=== PATIENT | male | born 1955 | race Caucasian/White ===

== ENCOUNTER → 2020-06-19 00:18 | Outpatient (CLI) | payer MEDICARE, SELFPAY ==
[2020-06-19 20:44] LABS: SARS-CoV-2 RNA PCR Negative
== END ==
PROVIDERS: Visit Provider Internal Medicine Gastroenterology
DX: Z01.812 Encounter for preprocedural laboratory examination (principal); Z20.822 Contact with and (suspected) exposure to COVID-19
CPT/HCPCS: C9803; U0003; U0005

== ENCOUNTER 2020-06-22 00:55 | Day surgery (SDC) | payer MEDICARE, SELFPAY ==
[2020-06-11 14:04] VITALS: BMI 29.9
[2020-06-22 08:40] VITALS: BP 147/93; PULSE 83; RESP 18; TEMP 36.7; O2SAT 96
[2020-06-22] MEDS: LACTATED RINGERS 1,000 ML 150 ML IV CONT (08:54)
[2020-06-22 09:00] LABS: Glucose Point of Care 153 (65-105)
--- NOTE | 2020-06-22 09:20 | WPDANESEPPF ---
Anes - Initial Pre Proc Eval Procedure: Operation Date: 06/22/20 09:30 Proposed Procedures p Screening Colonoscopy - Edgardo Luther MD Date/Time: 06/22/20 09:20 Surgeon: Edgardo Luther MD Pre Op Diagnosis: hx of colon polyps Patient Data Age: 64 Gender: M Height: 6 ft Weight: 113 kg Last Vital Signs Temp 98.0 F 06/22/20 08:40 Pulse 83 06/22/20 08:40 Resp 18 06/22/20 08:40 BP 147/93 H 06/22/20 08:40 Pulse Ox 96 06/22/20 08:40 Allergies Allergy/AdvReac Type Severity Reaction Status Date / Time No Known Allergies Allergy Mild Verified 06/22/20 08:38 Home Medications Medication Instructions Recorded Confirmed Type amlodipine 2.5 mg PO DAILY 06/11/20 06/11/20 History aspirin 81 mg PO DAILY 06/11/20 06/11/20 History atorvastatin 20 mg PO DAILY 06/11/20 06/11/20 History cholecalciferol (vitamin D3) 125 mcg PO DAILY 06/11/20 06/11/20 History [Vitamin D3] losartan 50 mg PO DAILY 06/11/20 06/11/20 History metformin 1,000 mg PO BID 06/11/20 06/11/20 History Laboratory Tests 06/22/20 08:56 POC Capillary Glucose 153 mg/dl H mg/dl (65-105) Patient hx anesthesia problems: none Family hx anesthesia problems: none [facility] Past Medical History Medical History (Updated 06/22/20 @ 09:13 by iJan Francis MD) Diabetes 1.5, managed as type 2 Hyperlipidemia Hypertension SHERLEY (obstructive sleep apnea) Social History Social History Years smoked: 20 Alcohol intake: unknown Substance use: never Substance use type: does not use Living arrangements: with friend(s) Anes - Eval Final PreProcedure Day of Procedure 06/22/20 09:20 Patient weight: obese Heart: regular rate and rhythm Lungs: clear to auscultation Airway: Mallampati scale class II Neurological: alert and oriented Last oral intake: >/= 8 hours ASA classification: III Emergent: no Anesthetic plan: proceed Anesthesia type and monitoring: general GIVS and standard monitoring Informed Consent: The patient's anesthetic plan and its attendant risks and benefits were discussed with the patient/family/POA. Questions were solicited and answers provided to the satisfaction of the patient/family/POA.
--- NOTE | 2020-06-22 09:39 | PM.HPGS ---
History of Present Illness History of Present Illness Consent: Risks, benefits, and alternatives have been discussed and questions answered. Patient agrees to proceed with procedure. Chief complaint: hx of colon polyps Narrative: Michele Marcos is a 64 year old male with last colonoscopy ~ 7 years ago, had polyps Review of Systems Constitutional: Constitutional: Denies headache(s) and Denies weakness Eyes: Eyes: Denies blurry vision ENT: Reports Normal hearing present, Denies headache(s) and Denies neck pain Cardiovascular: Cardiovascular: Denies chest pain and Denies dyspnea Respiratory: Respiratory: Denies dyspnea Gastrointestinal: Gastrointestinal: Reports no additional gastrointestinal complaints Genitourinary: Genitourinary: Denies dysuria Musculoskeletal: Musculoskeletal: Denies neck pain Integumentary/Breasts: Skin/Breast: Denies dry skin Neurologic: Reports Normal hearing present, Denies headache(s) and Denies weakness Psychiatric: Psychiatric: Denies anxiety Endocrine: Endocrine: Denies change in body appearance Hematologic/Lymphatic: Hematologic/Lymphatic: Denies easy bleeding Allergic/Immunologic: Allergic/Immunologic: Denies urticaria PMFSH Past Medical History Medical History (Updated 06/22/20 @ 09:40 by Edgardo Luther MD) Colon cancer screening Diabetes 1.5, managed as type 2 Hyperlipidemia Hypertension SHERLEY (obstructive sleep apnea) Social History Social History Years smoked: 20 Alcohol intake: unknown Substance use: never Substance use type: does not use Living arrangements: with friend(s) Meds Home Medications and Allergies Home Medications Medication Instructions Recorded Confirmed Type amlodipine 2.5 mg PO DAILY 06/11/20 06/11/20 History aspirin 81 mg PO DAILY 06/11/20 06/11/20 History atorvastatin 20 mg PO DAILY 06/11/20 06/11/20 History cholecalciferol (vitamin D3) 125 mcg PO DAILY 06/11/20 06/11/20 History [Vitamin D3] losartan 50 mg PO DAILY 06/11/20 06/11/20 History metformin 1,000 mg PO BID 06/11/20 06/11/20 History Allergies Allergy/AdvReac Type Severity Reaction Status Date / Time No Known Allergies Allergy Mild Verified 06/22/20 08:38 Vital Signs Vital Signs - 24 hr 06/22/20 08:40 Temperature 98.0 F Pulse Rate 83 Respiratory Rate 18 Blood Pressure 147/93 H Pulse Oximetry 96 Exam Const: General: comfortable and no acute distress HENMT: General nose exam: Normal nares present Eyes: General: appearance normal, both eyes and all related structures Neck: Neck: no JVD Resp: Auscultation: clear to auscultation bilaterally Cardio: Rate: regular rate Rhythm: regular rhythm GI: Inspection: non-distended GI Palp: Yes Soft to palpation Skin: General skin exam: normal color Neuro: General: gait normal Speech: normal speech Extrem: General: normal to inspection Psych: Mental Status: mental status grossly normal Assessment and Plan Assessment and plan (1) Colon cancer screening: Code(s): Z12.11 - Encounter for screening for malignant neoplasm of colon Status: Acute Assessment and Plan: colonoscopy
[2020-06-22 09:59] VITALS: BP 114/63; PULSE 71; RESP 18; O2SAT 96
[2020-06-22 10:09] VITALS: BP 126/85; PULSE 65; RESP 20; O2SAT 97
[2020-06-22 10:19] VITALS: BP 140/96; PULSE 62; RESP 20; O2SAT 100
== END 2020-06-22 10:39 | disposition home or self-care (01) ==
PROVIDERS: PCP Internal Medicine; Visit Provider Internal Medicine Gastroenterology
PROC: 0DJD8ZZ Inspection of Lower Intestinal Tract, Via Natural or Artificial Opening Endoscopic (ICD-10-PCS; CPT 45378; principal; 2020-06-22 09:30)
DX: Z12.11 Encounter for screening for malignant neoplasm of colon (principal); D12.3 Benign neoplasm of transverse colon; D12.0 Benign neoplasm of cecum; Z86.010 Personal history of colon polyps; K57.30 Diverticulosis of large intestine without perforation or abscess without bleeding; K64.8 Other hemorrhoids; K64.4 Residual hemorrhoidal skin tags; I10 Essential (primary) hypertension; E13.8 Other specified diabetes mellitus with unspecified complications; E78.5 Hyperlipidemia, unspecified; G47.33 Obstructive sleep apnea (adult) (pediatric); Z87.891 Personal history of nicotine dependence
CPT/HCPCS: 45385; 45380; 82948; 88305; C9803; J2704; J7120; U0003; U0005